=== PATIENT | female | born 1975 | race Caucasian/White ===

== ENCOUNTER 2018-10-18 06:19 | Day surgery (SDC) | payer MEDICAID ==
[~2018-10-18] VITALS: Ht 154.9 cm; Wt 76.0 kg
[2018-10-18] VITALS (14 sets, daily range): BP systolic 82–143; BP diastolic 45–63; PULSE 55–88; RESP 16–27; Ht 154.9 cm; Wt 76.0 kg
[2018-10-18] MEDS ORDERED: LIDOCAINE 2% (SDV) 5 ML INJ ONE (07:31)
[2018-10-18] MEDS ORDERED: PROPOFOL 40 ML ONE (07:31)
[2018-10-18] MEDS ORDERED: FAMOTIDINE 20 MG INJ ONE (07:32)
[2018-10-18] MEDS ORDERED: MIDAZOLAM 1 MG/ML 2 ML INJ ONE (07:32)
[2018-10-18] MEDS ORDERED: FENTAnyl 50 MCG/ML VIAL ONE (07:32)
[2018-10-18] MEDS ORDERED: ONDANSETRON 4 MG INJ ONE (07:32)
[2018-10-18] MEDS ORDERED: CEFAZOLIN 1 GM INJ ONE (07:32)
--- NOTE | 2018-10-18 08:03 | PREAC ---
Date/Time of Note Date/Time of Note DATE: 10/18/18 TIME: 08:01 Anesthesia Eval and Record Evaluation Time Pre-Procedure Interview DATE: 10/18/18 TIME: 08:01 Age 43 Sex female NPO: 8 hrs Preoperative diagnosis missed 9 weeks Planned procedure D&C Past Medical History Past Medical History: Includes GI: Obesity Surgery & Anesthesia Issues No known issue Meds Anticoagulation: No Beta Javier within 24 hr: No Reason Beta Javier not given: Pt. not on B-Javier No Active Prescriptions or Reported Meds Meds reviewed: Yes Allergies Coded Allergies: No Known Allergy (Unverified , 10/18/18) Allergies Reviewed: Yes Labs/Studies Labs Reviewed: Reviewed by anesthesiologist Result Diagram: 10/18/18 0700 Laboratory Tests 10/18/18 07:00 test: Positive Pre-procedure Exam Last vitals Vital Signs Date Temp Pulse Resp B/P (MAP) Pulse Ox O2 O2 Flow FiO2 Time Delivery Rate 10/18/18 98.0 61 16 143/63 100 Room Air 07:19 (89) Airway: Adequate mouth opening, Adequate thyromental dist Mallampati: Mallampati II Teeth: Normal Lung: Normal Heart: Normal ASA Physical Status ASA physical status: 2 Emergency: None Planned Anesthetic General/MAC: LMA Pre-operative Attestations Prior to commencing anesthesia and surgery, the patient was re-evaluated, there was verification of: *The patient's identity *The results of appropriate recent lab work and preoperative vital signs *The above evaluation not changing prior to induction *Anesthetic plan, risk benefits, alternative and complications discussed with patient/family; questions answered; patient/family understands, accepts and wishes to proceed. Counter Tender used NIC WREN Oct 18, 2018 08:02
[2018-10-18] MEDS ORDERED: METOCLOPRAMIDE 10 MG INJ ONE (08:04)
[2018-10-18] MEDS ORDERED: ONDANSETRON 4 MG INJ IV PRN (08:30)
[2018-10-18] MEDS ORDERED: MEPERIDINE 25 MG INJ IV PRN (08:30)
[2018-10-18] MEDS ORDERED: ALBUTEROL 0.083% (NEB) 2.5 MG/3 ML AMP HHN PRN (08:30)
[2018-10-18] MEDS ORDERED: OXYCODONE/ACETAMINOPHEN (5/325) TAB PO PRN ×2 (08:30)
[2018-10-18] MEDS ORDERED: HYDROmorphONE 1 MG/5 ML IV SYRINGE IV PRN ×3 (08:30)
[2018-10-18] MEDS ORDERED: FENTAnyl 50 MCG/ML VIAL IV PRN ×2 (08:30)
[2018-10-18] MEDS ORDERED: EPHEDrine 25 MG/5 ML SYG IV PRN (08:30)
[2018-10-18] MEDS ORDERED: morphine 2 MG INJ IV PRN ×2 (08:30)
[2018-10-18] MEDS ORDERED: LABETALOL HCL 20MG INJ IV PRN (08:30)
[2018-10-18] MEDS ORDERED: DIPHENHYDRAMINE 50 MG INJ IV PRN (08:30)
[2018-10-18] MEDS ORDERED: hydrALAzine 20 MG INJ IV PRN (08:30)
[2018-10-18] MEDS ORDERED: KETOROLAC 30 MG INJ ONE (08:32)
--- NOTE | 2018-10-18 08:38 | OPPN ---
Date/Time of Note Date/Time of Note DATE: 10/18/18 TIME: 08:38 Operative Report Preoperative Diagnosis Missed Postoperative Diagnosis Same Operation/Procedure Performed D&C&Suction Surgeon see signature line trading assistant none Anesthesia: general Estimated blood loss: 10 - 50 ml's Transfusion Required none Specimen POC Grafts/Implants none Complications none MARGA JONES M.D. Oct 18, 2018 08:38
--- NOTE | 2018-10-18 08:52 | PAC ---
Date/Time of Note Date/Time of Note DATE: 10/18/18 TIME: 08:51 Post-Anesthesia Notes Post-Anesthesia Note Last documented vital signs Vital Signs Date Temp Pulse Resp B/P (MAP) Pulse Ox O2 O2 Flow FiO2 Time Delivery Rate 10/18/18 98.0 99 61 72 16 18 143/63 100 99 Room 07:19 084 (89) 90/4 Air face 3 6 mask 8L Activity: WNL Respiratory function: WNL Cardiovascular function: WNL Mental status: Baseline Pain reasonably controlled: Yes Hydration appropriate: Yes Nausea/Vomiting absent: Yes NIC WREN Oct 18, 2018 08:52
--- NOTE | 2018-10-18 14:32 | OPR ---
DATE OF OPERATION: 10/18/2018 PREOPERATIVE DIAGNOSIS: Missed . POSTOPERATIVE DIAGNOSIS: Missed . OPERATION PERFORMED: D and C and suction ATTENDING SURGEON: Dr. Antony Perea MD ANESTHESIA: General. COMPLICATIONS: None. ESTIMATED BLOOD LOSS: 50 mL. TECHNIQUE: The patient was taken to the operating room where general anesthesia was found to be adeq uate. The patient was placed in the dorsal lithotomy position. After prep and drape, a weighted spe culum was placed inside the vaginal vault. The anterior lip of the cervix was grasped by a single-to oth tenaculum. The cervix was dilated by Nassar dilators. A suction tip size 8 was inserted. The intr auterine cavity was suctioned. Sharp curettage of endometrial cavity was done. Hemostasis achieved. The Instruments were removed. The patient tolerated the procedure well and was transferred to [facility] very room in stable condition. There was no complication regarding this surgery. Dictated By: ANTONY JC/JOYCE Conf#: [id number] DID#: [id number]
== END 2018-10-18 11:25 | disposition home or self-care (01) ==
LOC: SDS 06:19
PROVIDERS: ATTEND Obstetrics & Gynecology
DX: O02.1 Missed abortion (principal)
CPT/HCPCS: 59820; 85025; 86850; 86900; 86901; 88305; J0690; J2250; J2405; J3010; Z7512; Z7610; J1885; J2765